=== PATIENT | male | born 1955 | race Caucasian/White ===

== ENCOUNTER → 2021-09-30 | Day surgery (SDC) | payer MEDICARE, OTHER ==
[~2021-09-30] VITALS: Ht 185.4 cm; Wt 106.6 kg
[~2021-09-30] MED LIST: TAMSULOSIN HCL0.4 MG PO
== END | disposition home or self-care (01) ==
LOC: FAS 10:20
DX: D12.3 Benign neoplasm of transverse colon (principal); K57.30 Diverticulosis of large intestine without perforation or abscess without bleeding; K64.4 Residual hemorrhoidal skin tags
CPT/HCPCS: J2704; J7120